=== PATIENT | female | born 1980 | race Caucasian/White ===

== ENCOUNTER 2019-02-07 19:56 | Inpatient (IN) | payer BC ==
[~2019-02-07] VITALS: Ht 154.9 cm; Wt 83.0 kg
[2019-02-07] MEDS ORDERED: ALPR1TAB3 (20:22)
[2019-02-07] MEDS ORDERED: PARO15TA (20:22)
[2019-02-07] MEDS ORDERED: BUPR150T5 (20:22)
[2019-02-07 21:36] LABS: HEMATOCRIT 39.9 % (36.0-47.0); HEMOGLOBIN 13.1 g/dl (12.0-15.5); MEAN CORPUSCULAR HEMOGLOBIN 29.2 pg (27.0-33.0); MEAN CORPUSCULAR HGB CONC 32.8 g/dl (32.0-36.5); MEAN CORPUSCULAR VOLUME 88.9 fl (80.0-96.0); PLATELET COUNT, AUTOMATED 343 10^3/uL (150-450); RED BLOOD COUNT 4.49 10^6/uL (4.00-5.40); WHITE BLOOD COUNT 9.5 10^3/uL (4.0-10.0)
[2019-02-07] MEDS ORDERED: PARO30TA PO (21:57)
[2019-02-07] MEDS ORDERED: ALPR1TAB3 PO (21:57)
[2019-02-07] MEDS ORDERED: BUPR150T5 PO (21:57)
[2019-02-07 22:00] LABS: AMPHETAMINES LEVEL URINE NEGATIVE (NEGATIVE); BARBITURATES URINE NEGATIVE (NEGATIVE); BENZODIAZEPINES URINE POSITIVE (NEGATIVE); CANNABINOIDS URINE NEGATIVE (NEGATIVE); COCAINE METABOLITE URINE NEGATIVE (NEGATIVE); METHADONE URINE NEGATIVE (NEGATIVE); OPIATES URINE NEGATIVE (NEGATIVE); PHENCYCLIDINE URINE NEGATIVE (NEGATIVE)
[2019-02-07 22:07] LABS: ACETAMINOPHEN LEVEL < 2.0 UG/ML (10.0-30.0); ALBUMIN 3.6 GM/DL (3.2-5.2); ALT/SGPT 32 U/L (12-78); BILIRUBIN,DIRECT 0.1 MG/DL (0.0-0.2); BILIRUBIN,TOTAL 0.3 MG/DL (0.2-1.0); BLOOD UREA NITROGEN 8 MG/DL (7-18); CALCIUM LEVEL 8.5 MG/DL (8.5-10.1); CARBON DIOXIDE LEVEL 28 MEQ/L (21-32); CHLORIDE LEVEL 106 MEQ/L (98-107); CREATININE FOR GFR 0.65 MG/DL (0.55-1.30); ETHYL ALCOHOL (ETHANOL) < 0.003 % (0.000-0.010); GLOMERULAR FILTRATION RATE > 60.0 (>58); GLUCOSE, FASTING 83 MG/DL (70-100); POTASSIUM SERUM 4.1 MEQ/L (3.5-5.1); SALICYLATE LEVEL < 1.7 MG/DL (5.0-30.0); SODIUM LEVEL 139 MEQ/L (136-145); TOTAL PROTEIN 6.6 GM/DL (6.4-8.2)
[2019-02-07] MEDS ORDERED: D3 U1000 PO (22:23)
[2019-02-07] MEDS ORDERED: SUMA25TA3 PO (22:23)
[2019-02-07] MEDS ORDERED: B-122000 PO (22:23)
[2019-02-07] MEDS ORDERED: VITACHTA PO (22:23)
[2019-02-07] MEDS ORDERED: RA M10TA PO (22:23)
[2019-02-07] MEDS ORDERED: MAGN400T3 PO (22:23)
[2019-02-07] MEDS ORDERED: CITRTAB13 PO (22:23)
[2019-02-07] MEDS ORDERED: IBUP-1094 PO (22:23)
[2019-02-07] MEDS ORDERED: ACETAMINOPHEN TAB 650MG DOSE (2X325MG) PO PRN (23:15)
[2019-02-07] MEDS ORDERED: MOM 30ML SUSPENSION UDC PO PRN (23:15)
[2019-02-07] MEDS ORDERED: MAALOX 30 ML SUSP *UDC PO PRN (23:15)
[2019-02-08 00:52] VITALS: BP 119/85
[2019-02-08] MEDS: traZODone 50 MG TAB PO PRN ×2 (01:13→20:15)
[2019-02-08 06:37] VITALS: BP 107/54
[2019-02-08] MEDS ORDERED: buPROPion **SR TABLET** (ZYBAN) 150MG PO SCH (09:00)
[2019-02-08] MEDS ORDERED: INFLUENZA QUADRIVALENT PF VACCINE 0.5ML SYRINGE (90686) IM ONE (09:00)
[2019-02-08] MEDS: CYANOCOBALAMIN 500 MCG TAB PO SCH (09:21)
--- NOTE | 2019-02-08 12:13 | MHHPEPDOC ---
General Date Of Admission: Feb 07, 2019 Legal Status: 9.39 Chief Complaint "I'm having thoughts of suicide and thinking of taking an OD". History of Present Illness HISTORY OF THE PRESENT ILLNESS: Patient is a 38 -year-old , female, with no psych history how self-presented to ED endorsing depression and SI w/plan to OD. Pt endorsed depression, low energy, poor appetite, poor sleep, avolition (lays in bed all day), thoughts of guilt ("or everything, even things that aren't my fault") that has been getting worse since her kids returned to school as her oldest daughter is a senior this year and will be going to college next year. Pt had an intake with [facility] 02/05/19 and with have f/u with them on 02/14/19. Her PCP was prescribing her xanax, wellbutrin sr, and paxil for depression. Psychiatric Review of Systems Depression (2 or more weeks): depressed mood, anhedonia, insomnia/hypersomnia (insomnia), feelings of excess/guilt (guilt ("everything, even things that aren't my fault.")), feelings of worthlesness, difficulty concentrating, appetite changes, suicidal thoughts Layne (4 or more days of): denies Psychosis: denies PTSD: denies Anxiety: situational anxiety, stressor related anxiety Anxiety/ 6 months or more of: easily fatigued, difficulty concentrating, sleep disturbance Past Psychiatric History Previous Psychiatric Diagnosis: depression Previous Psychiatric Admissions: denies Suicide Attempts: denies Psychiatric Follow-up: [facility] 02/14/19 Psychiatric medications: wellbutrin sr, xanax qhs, paxil Past Medical History Medical Problems denies Head Injury: No Seizures: No Hospitalizations: No Surgeries: Yes (hernia repair x2, c-cection, hysterectomy, cystectomy, gastric bypass) Family Medical/Psychiatric HX Medical Problems noncontributory Psychiatric Disorders: No Addiction: No Suicide Attemps/Completions: No Addiction History alcohol (2x/wk), other (cannabis occasionally, utox pos benzos (prescribed xanax)) Social History Childhood: . Abuse/Trauma:denies Current Living Situation: lives in [place] with her and 3 daughters Education: . Employment: . Social Support: . Legal: denies Marital: Mental Status Examination General Appearance: well groomed, appears stated age, hospital scubs/clothing, other (facial peircings) Build: overweight Demeanor: average Eye Contact: average Activity: average Behavior: cooperative Speech: clear, spontaneous, reg/rate,rhythm,volume Mood: depressed Mood better today Affect: constricted, appropriate Thought Process: logical/linear, depressed, intact Thought Content (Delusions): none reported, denies SI, HI, AVH Thought Content (Other): none reported, appropriate Thought Content (Aggressive): none reported Perception (Hallucinations): none reported Perception (Other): none reported Cognition (Impairment of): none reported Cognition(Intelligence Est.): average Oriented: Awake, Alert, Oriented times three Insight: fair Judgment: Fair Psychosis: Denies Diagnoses Major depressive d/o recurrent severe w/o psychosis A-FIB/CHADSVASC A-FIB History Current/History of A-Fib/PAF?: No Assessment pt seen and states she feels better today, was just scared on the thoughts of suicide she was having. States on Monday she had a thought of taking all her pills and "top it all off with my xanax" so she could just sleep thru it all. States the thought "hit me again out of no where" and she told her who brought her to her mothers who though it be best she come here. Denies any thoughts of suicide. States she missed home and is just "sad" b/c she misses her daughters. Admits she is close with her daughters and started having "empty nest syndrome" regarding her eldest going to college, daughter wants to go to [place] which isn't that far away. States regarding her daughter growing up "I just wasn't expecting it to happen so soon and wasn't ready for it." States she been on paxil for a long time and doesn't know if it's working anymore, that she ws started on Wellbutrin in July by her PCP when she began to experience some depression. Unsure if wellbutrin is causing her any anxiety but things maybe as she currently dealing with anxious thoughts regarding her daughter going to college. Agreeable to titrating off paxil to prozac for mood/anxiety, weening off wellbutrin sr, and d/c xanax with trazodone for sleep. Risks/benefits discussed. Encouraged to go to groups to learn coping skills. Denies current SI/HI, hallucinations, delusions. Feels safe here. Initial Treatment Plan 1. Patient was admitted on a 9.39 status. 2. Complete history was obtained. 3. With patients permission, family will be contacted and database will be expanded. 4. Patients medication regimen will be reviewed and changed accordingly. 5. Patient will be provided with protected environment. 6. Patient will be treated with individual, group, and milieu therapies. 7. Patient will receive supportive psych-education. 8. Discharge planning will commence immediately. 9. Outpatient follow-up treatment will be strongly recommended. 10. The initial treatment plan will focus initially on: * Depression. * Risk for suicide. 11. paxil decrease to 20mg qhs to ween off and start prozac 10mg daily for mood/anxiety, weening off wellbutrin sr decrease to 150mg daily, and d/c xanax with trazodone prn insomnia ESTIMATED LENGTH OF STAY: 5-7 DAYS. TIME SPENT COUNSELING AND COORDINATING INITIAL CARE: 60 minutes. Vital Signs Vital Signs Date Time Temp Pulse Resp B/P (MAP) Pulse Ox O2 Delivery O2 Flow Rate FiO2 02/08/19 06:37 97.6 66 12 107/54 (71) 02/08/19 00:52 94 Room Air Laboratory Data 24H Labs Laboratory Tests 2 02/07/19 21:16: Nucleated Red Blood Cells % (auto) 0.0, Anion Gap 5L, Glomerular Filtration Rate > 60.0, Calcium Level 8.5, Total Bilirubin 0.3, Direct Bilirubin 0.1, Aspartate Amino Transf (AST/SGOT) 24, Alanine Aminotransferase (ALT/SGPT) 32, Alkaline Phosphatase 58, Total Protein 6.6, Albumin 3.6, Albumin/Globulin Ratio 1.20, Thyroid Stimulating Hormone (TSH) 1.730, Salicylates Level < 1.7L, Urine Opiates Screen NEGATIVE, Urine Methadone Screen NEGATIVE, Acetaminophen Level < 2.0L, Urine Barbiturates Screen NEGATIVE, Urine Phencyclidine Screen NEGATIVE, Urine Amphetamines Screen NEGATIVE, Urine Benzodiazepines Screen POSITIVEH, Urine Cocaine Metabolite Screen NEGATIVE, Urine Cannabinoids Screen NEGATIVE, Ethyl Alcohol Level < 0.003 CBC/BMP Laboratory Tests 02/07/19 21:16 Medications Scheduled Alprazolam (Alprazolam) 1 Mg Tablet, 1 MG PO QHS, (Reported) Bupropion Hcl (Bupropion HCl Sr) 150 Mg Tab.sr.12h, 150 MG PO BID, (Reported) Calcium Citrate/Vitamin D3 (Citracal + D Maximum Caplet) 1 Each Tablet, 1 TAB PO QHS, (Reported) Cholecalciferol (Vitamin D3) (Vitamin D3) 10,000 Unit Capsule, 10,000 UNIT PO QHS, (Reported) Cyanocobalamin (Vitamin B-12) (Vitamin B-12) 2,000 Mcg Tablet, 1,000 MCG PO Q2D, (Reported) EVERY OTHER NIGHT Magnesium Oxide (Magnesium Oxide) 400 Mg Tablet, 400 MG PO QHS, (Reported) Melatonin (Melatonin) 10 Mg Tablet, 10 MG PO QHS, (Reported) Multivitamins (Child Chew Vitamin) 1 Each Tab.chew, 2 TAB PO QHS, (Reported) Paroxetine (Paroxetine HCl) 30 Mg Tablet, 30 MG PO QHS, (Reported) Scheduled PRN Ibuprofen (Ibuprofen) 200 Mg Tablet, 800 MG PO TID PRN for HEADACHE OR PAIN, (Reported) Sumatriptan Succinate (Sumatriptan Succinate) 25 Mg Tablet, Unknown Dose PO BID PRN for MIGRAINE, (Reported) Allergies Coded Allergies: Sulfa (Sulfonamide Antibiotics) (Verified Allergy, Intermediate, HIVES, SOB, 02/07/19) cefuroxime (Verified Allergy, Intermediate, HIVES, 02/07/19) HANG RAMON DO Feb 08, 2019 12:13
[2019-02-08] MEDS ORDERED: FLUoxetine 10 MG CAP PO ONE (12:45)
--- NOTE | 2019-02-08 12:58 | HPEPDOC ---
[facility] Medical History & Physical Date of Admission Feb 08, 2019 Date of Service: Feb 08, 2019 History and Physical CONSULT FOR: Psychiatry medical H&P HISTORY OF PRESENT ILLNESS: This is a 38-year-old female without significant past medical history who presents with suicidal ideation admitted to the inpatient mental [facility] for fear of self-harm. She tells me physically she feels well and has been in the state of usual health. Otherwise patient denies weight loss, hair loss, headache, visual changes, chest pain, shortness of breath, cough, nausea, vomiting, diarrhea, abdominal pain, muscle aches, worsening arthritis PAST MEDICAL HISTORY: 1. Migraine headaches. 2. Anxiety. 3. Depression. HOME MEDICATIONS: Please see below. ALLERGIES: Please see below PAST SURGICAL HISTORY: 1. Cholecystectomy. 2. gastric bypass surgery. 3. Hernia repair 4. 3 5. Back surgery 6. Ankle surgery. SOCIAL HISTORY: Lives with: and 3 daughters, Employment: Not currently employed, Tobacco use: Denies. ETOH: Drinks heavily on weekends 6-7 drinks per night but no daily drinking, Illicit drug use: Denies, CODE STATUS: Full code FAMILY HISTORY:Reviewed and noncontributory REVIEW OF SYSTEMS: 10 systems reviewed and negative other than HPI PHYSICAL EXAMINATION: VITAL SIGNS: Please see below GENERAL: Pleasant morbidly obese female sitting up in bed awake alert oriented speaking in complete sentences no acute distress reading a book HEENT: Moist mucous membranes no elevation in CVP CARDIOVASCULAR: S1 S2 regular no additional heart sounds appreciated. RESPIRATORY: Clear to auscultation bilaterally. ABDOMINAL: Bowel sounds present abdomen soft and nontender, obese EXTREMITIES: No clubbing cyanosis or edema NEUROLOGICAL: Spontaneously moves all 4 extremities cranial 2 through 12 grossly intact no gross focal deficits appreciated PSYCHOLOGICAL: Appropriate somewhat flat LABORATORY DATA: See below. MICROBIOLOGY: Please see below. IMAGING: None ASSESSMENT & PLAN: This is a 38-year-old female with suicidal ideation. PROBLEMS: 1. Depression and anxiety suicidal ideation: We'll defer management to psychiatry. 2. Migraine headaches: We are holding her sumatriptan restart as needed no evidence of any headaches at this time 3. B12 and vitamin D deficiency: Continue his B12 supplementation okay to continue multivitamins 4.Chronic back pain: Continue with ibuprofen DVT PROPHYLAXIS: Ambulating Thank you for this interesting consult, we will continue to follow along with you as needed. Please Vocera secure text or call with any specific questions. Vital Signs Vital Signs Date Time Temp Pulse Resp B/P (MAP) Pulse Ox O2 Delivery O2 Flow Rate FiO2 02/08/19 06:37 97.6 66 12 107/54 (71) 02/08/19 00:52 94 Room Air Laboratory Data Labs 24H Laboratory Tests 2 02/07/19 21:16: Nucleated Red Blood Cells % (auto) 0.0, Anion Gap 5L, Glomerular Filtration Rate > 60.0, Calcium Level 8.5, Total Bilirubin 0.3, Direct Bilirubin 0.1, Aspartate Amino Transf (AST/SGOT) 24, Alanine Aminotransferase (ALT/SGPT) 32, Alkaline Phosphatase 58, Total Protein 6.6, Albumin 3.6, Albumin/Globulin Ratio 1.20, Thyroid Stimulating Hormone (TSH) 1.730, Salicylates Level < 1.7L, Urine Opiates Screen NEGATIVE, Urine Methadone Screen NEGATIVE, Acetaminophen Level < 2.0L, Urine Barbiturates Screen NEGATIVE, Urine Phencyclidine Screen NEGATIVE, Urine Amphetamines Screen NEGATIVE, Urine Benzodiazepines Screen POSITIVEH, Urine Cocaine Metabolite Screen NEGATIVE, Urine Cannabinoids Screen NEGATIVE, Ethyl Alcohol Level < 0.003 CBC/BMP Laboratory Tests 02/07/19 21:16 Home Medications Scheduled Alprazolam (Alprazolam) 1 Mg Tablet, 1 MG PO QHS Bupropion Hcl (Bupropion HCl Sr) 150 Mg Tab.sr.12h, 150 MG PO BID Calcium Citrate/Vitamin D3 (Citracal + D Maximum Caplet) 1 Each Tablet, 1 TAB PO QHS Cholecalciferol (Vitamin D3) (Vitamin D3) 10,000 Unit Capsule, 10,000 UNIT PO QHS Cyanocobalamin (Vitamin B-12) (Vitamin B-12) 2,000 Mcg Tablet, 1,000 MCG PO Q2D EVERY OTHER NIGHT Magnesium Oxide (Magnesium Oxide) 400 Mg Tablet, 400 MG PO QHS Melatonin (Melatonin) 10 Mg Tablet, 10 MG PO QHS Multivitamins (Child Chew Vitamin) 1 Each Tab.chew, 2 TAB PO QHS Paroxetine (Paroxetine HCl) 30 Mg Tablet, 30 MG PO QHS Scheduled PRN Ibuprofen (Ibuprofen) 200 Mg Tablet, 800 MG PO TID PRN for HEADACHE OR PAIN Sumatriptan Succinate (Sumatriptan Succinate) 25 Mg Tablet, Unknown Dose PO BID PRN for MIGRAINE Allergies Coded Allergies: Sulfa (Sulfonamide Antibiotics) (Verified Allergy, Intermediate, HIVES, SOB, 02/07/19) cefuroxime (Verified Allergy, Intermediate, HIVES, 02/07/19) A-FIB/CHADSVASC A-FIB History Current/History of A-Fib/PAF?: No LAMIN HOROWITZ MD Feb 08, 2019 12:58
[2019-02-08 16:42] VITALS: BP 123/59
[2019-02-08] MEDS: IBUPROFEN 800 MG TAB PO PRN (19:06)
[2019-02-08] MEDS: MULTIVITAMINS CHILDREN'S CHEWABLE TABLET PO SCH (20:15)
[2019-02-08] MEDS: PARoxetine 20 MG TAB PO SCH (20:15)
[2019-02-08] MEDS: MAGNESIUM OXIDE 400 MG TAB (MAG-OX) PO SCH (20:15)
[2019-02-08] MEDS ORDERED: ALPRAZolam 0.5 MG TAB PO SCH (21:00)
[2019-02-08] MEDS ORDERED: PARoxetine 10MG TABLET PO SCH (21:00)
[2019-02-09 06:58] VITALS: BP 123/67
[2019-02-09] MEDS: FLUoxetine 10 MG CAP PO SCH (08:18)
[2019-02-09] MEDS: buPROPion (WELLBUTRIN SR) 100 MG SR TAB PO SCH (08:18)
[2019-02-09 16:34] VITALS: BP 115/62
--- NOTE | 2019-02-09 18:15 | MHIPN ---
DATE: 02/09/2019 VITAL SIGNS: Blood pressure 115/62, pulse 77, temperature 98.3. CHIEF COMPLAINT: Says feels better. SUBJECTIVE: Seen for followup. Indicates feels better and that she feels less anxious. Moods are improved. She still has difficulties with sleep. Says has essentially always had difficulties. Had sleep apnea, but after losing weight says that improved considerably. MENTAL STATUS EXAMINATION: Neat, cooperative. No agitation. No psychomotor retardation. She is coherent. Affect reactive, fair range. Denies any thoughts of harming herself or anyone else. Currently no evidence of any psychosis. Cognition grossly intact. Judgment and insight fair, possibly improved. ASSESSMENT: Major depressive disorder, recurrent, severe. PLAN: Continue cross-tapering Prozac and Paxil. I would suggest that the Prozac is increased to 20 mg daily. Paxil is to remain at the current dose and consider a decrease slowly. She is being tapered off the Wellbutrin. Encourage participation in activities in the unit. Further recommendations will be made depending on the clinical picture.
[2019-02-09] MEDS: traZODone 50 MG TAB PO PRN (20:49)
[2019-02-09] MEDS: PARoxetine 20 MG TAB PO SCH (20:49)
[2019-02-09] MEDS: MULTIVITAMINS CHILDREN'S CHEWABLE TABLET PO SCH (20:49)
[2019-02-09] MEDS: MAGNESIUM OXIDE 400 MG TAB (MAG-OX) PO SCH (20:49)
[2019-02-09] MEDS: IBUPROFEN 800 MG TAB PO PRN (20:51)
[2019-02-10 06:40] VITALS: BP 97/52
[2019-02-10] MEDS: buPROPion (WELLBUTRIN SR) 100 MG SR TAB PO SCH (08:07)
[2019-02-10] MEDS: IBUPROFEN 800 MG TAB PO PRN ×2 (08:07→15:16)
[2019-02-10] MEDS: CYANOCOBALAMIN 500 MCG TAB PO SCH (08:08)
[2019-02-10] MEDS: FLUoxetine 10 MG CAP PO SCH (09:33)
[2019-02-10] MEDS: CEPACOL LOZENGE PO PRN (15:15)
--- NOTE | 2019-02-10 15:49 | MHIPN ---
DATE: 02/10/2019 VITAL SIGNS: Blood pressure 97/62, pulse 69, temperature 100. CHIEF COMPLAINT: Says feels okay. SUBJECTIVE: She is seen for followup in the presence of staff. Says she feels okay but has felt hot with a throat that is somewhat sore. Says emotionally has been doing better. MENTAL STATUS EXAMINATION: Neat, cooperative. There is no agitation. No psychomotor retardation. She is coherent. Affect is restricted in range but reactive. At present denies any suicidal thoughts or intents. Denies any suicidal thoughts or intents. No homicidal ideas or intents. No evidence of any psychosis. Cognition is grossly intact. Judgment and insight fair, improved. ASSESSMENT: 1. Major depressive disorder, recurrent, severe. PLAN: Prozac has been increased to 20 mg daily. We will cross taper it with the Paxil. This is as the Wellbutrin is being tapered off. We will monitor her temperature, vital signs, and she will be given some throat lozenges as well. She will see her treatment team and the psychiatrist tomorrow when further recommendations will be made.
[2019-02-10 16:40] VITALS: BP 110/70
[2019-02-10] MEDS: PARoxetine 20 MG TAB PO SCH (21:16)
[2019-02-10] MEDS: traZODone 50 MG TAB PO PRN (21:16)
[2019-02-10] MEDS: MAGNESIUM OXIDE 400 MG TAB (MAG-OX) PO SCH (21:16)
[2019-02-10] MEDS: MULTIVITAMINS CHILDREN'S CHEWABLE TABLET PO SCH (21:17)
[2019-02-11] MEDS: IBUPROFEN 800 MG TAB PO PRN (06:45)
[2019-02-11 06:48] VITALS: BP 94/52
[2019-02-11] MEDS ORDERED: PROZ20CA11 PO (08:59)
[2019-02-11] MEDS ORDERED: TRAZ-252 PO (08:59)
--- NOTE | 2019-02-11 09:01 | MHDSPDOC ---
[facility] Discharge Summary Discharge Summary DATE OF ADMISSION: Feb 07, 2019 at 11:10 pm DATE OF DISCHARGE: Feb 11, 2019 DISCHARGE DIAGNOSES: Major depressive d/o recurrent severe w/o psychosis REASON FOR ADMISSION: Patient is a 38 -year-old , female, with no psych history how self-presented to ED endorsing depression and SI w/plan to OD. Pt endorsed depression, low energy, poor appetite, poor sleep, avolition (lays in bed all day), thoughts of guilt ("or everything, even things that aren't my fault") that has been getting worse since her kids returned to school as her oldest daughter is a senior this year and will be going to college next year. Pt had an intake with [facility] 02/05/19 and with have f/u with them on 02/14/19. Her PCP was prescribing her xanax, wellbutrin sr, and paxil for depression. Pt seen and states she feels better today, was just scared on the thoughts of suicide she was having. States on Monday she had a thought of taking all her pills and "top it all off with my xanax" so she could just sleep thru it all. States the thought "hit me again out of no where" and she told her who brought her to her mothers who though it be best she come here. Denies any thoughts of suicide. States she missed home and is just "sad" b/c she misses her daughters. Admits she is close with her daughters and started having "empty nest syndrome" regarding her eldest going to college, daughter wants to go to [place] which isn't that far away. States regarding her daughter growing up "I just wasn't expecting it to happen so soon and wasn't ready for it." States she been on paxil for a long time and doesn't know if it's working anymore, that she ws started on Wellbutrin in July by her PCP when she began to experience some depression. Unsure if wellbutrin is causing her any anxiety but things maybe as she currently dealing with anxious thoughts regarding her daughter going to college. Agreeable to titrating off paxil to prozac for mood/anxiety, weening off wellbutrin sr, and d/c xanax with trazodone for sleep. Risks/benefits discussed. Encouraged to go to groups to learn coping skills. Denies current SI/HI, hallucinations, delusions. Feels safe here. CONSULTANTS INVOLVED: none TREATMENT AND PROGRESS ON THE UNIT : Pt was admitted to [facility], seen for psychiatric assessment and was started on cross taper from paxil to prozac with eventual d/c paxil and continueation of prozac 20mg daily for mood which she tolerated well. She was weened off wellbutrin sr to eventual d/c which she tolerated well. Her xanax was discontinued due to risk of addiction and she was started on trazodone 50mg qhs prn insomnia. She denies benzodiazepine withdrawal symptoms during her stay and her vitals remained stable. Pt found the change in her medications beneficial and tolerated them well. She attended groups daily during her stay. Her symptoms improved with treatment. On day of discharge she denied depression, anxiety, insomnia, SI/HI, hallucinations, delusions. She was discharged home with follow-up at [facility] 02/14/19.. She felt safe for discharge. DISCHARGE ASSESSMENT: Pt seen and states that her mood is "good and that she's really looking forward to going home today as she missed her and daughters very much. She states her family is very supportive of her. States she's being social on the milieu which is beneficial. States she slept well last night. Feels she is tolerating her medications and they're beneficial. She is attending groups and finding them helpful especially thru learning to use coping skills. She denies depression, anxiety, insomnia, SI/HI, hallucinations, delusions. Pt feels safe to go home to her family today MENTAL STATUS EXAMINATION ON DISCHARGE: General Appearance: well groomed, appears stated age, hospital scrubs/clothing, other (facial piercings) Build: overweight Demeanor: average Eye Contact: average Activity: average Behavior: cooperative Speech: clear, spontaneous, reg/rate,rhythm,volume Mood: euthymic, full range Mood "good" Affect: euthymic, appropriate, full range, congruent Thought Process: logical/linear, intact Thought Content (Delusions): none reported, denies SI, HI, AVH Thought Content (Other): none reported, appropriate Thought Content (Aggressive): none reported Perception (Hallucinations): none reported Perception (Other): none reported Cognition (Impairment of): none reported Cognition(Intelligence Est.): average Oriented: Awake, Alert, Oriented times three Insight: fair Judgment: Fair Psychosis: Denies MEDICATIONS ON DISCHARGE: prozac 20mg daily trazodone 50mg qhs prn insomnia PLAN/FOLLOWUP ARRANGEMENTS: D/c home with follow-up at [facility] 02/14/19. The amount of time spent in the coordination of care for this patient was approximately 30 minutes. Vital Signs/I&Os Vital Signs Date Time Temp Pulse Resp B/P (MAP) Pulse Ox O2 Delivery O2 Flow Rate FiO2 02/11/19 06:48 99.3 67 14 94/52 (66) 02/10/19 06:40 Room Air 02/08/19 00:52 94 Medications Scheduled Alprazolam (Alprazolam) 1 Mg Tablet, 1 MG PO QHS, (Reported) Bupropion Hcl (Bupropion HCl Sr) 150 Mg Tab.sr.12h, 150 MG PO BID, (Reported) Calcium Citrate/Vitamin D3 (Citracal + D Maximum Caplet) 1 Each Tablet, 1 TAB PO QHS, (Reported) Cholecalciferol (Vitamin D3) (Vitamin D3) 10,000 Unit Capsule, 10,000 UNIT PO Q HS, (Reported) Cyanocobalamin (Vitamin B-12) (Vitamin B-12) 2,000 Mcg Tablet, 1,000 MCG PO Q2D, (Reported) EVERY OTHER NIGHT Magnesium Oxide (Magnesium Oxide) 400 Mg Tablet, 400 MG PO QHS, (Reported) Melatonin (Melatonin) 10 Mg Tablet, 10 MG PO QHS, (Reported) Multivitamins (Child Chew Vitamin) 1 Each Tab.chew, 2 TAB PO QHS, (Reported) Paroxetine (Paroxetine HCl) 30 Mg Tablet, 30 MG PO QHS, (Reported) Scheduled PRN Ibuprofen (Ibuprofen) 200 Mg Tablet, 800 MG PO TID PRN for HEADACHE OR PAIN, (Reported) Sumatriptan Succinate (Sumatriptan Succinate) 25 Mg Tablet, Unknown Dose PO BID PRN for MIGRAINE, (Reported) Allergies Coded Allergies: Sulfa (Sulfonamide Antibiotics) (Verified Allergy, Intermediate, HIVES, SOB, 02/07/19) cefuroxime (Verified Allergy, Intermediate, HIVES, 02/07/19) HANG RAMON DO Feb 11, 2019 9:01 am
[2019-02-11] MEDS: buPROPion (WELLBUTRIN SR) 100 MG SR TAB PO SCH (09:22)
[2019-02-11] MEDS: FLUoxetine 10 MG CAP PO SCH (09:22)
[2019-02-11] MEDS: CEPACOL LOZENGE PO PRN (09:23)
== END 2019-02-11 12:50 | disposition home or self-care (01) | DRG 751 ==
LOC: M ED 19:56 → M ED INP 23:10 → M PSY 02-08 00:10
PROVIDERS: ADMIT Psychiatry & Neurology Psychiatry; ATTEND Psychiatry & Neurology Psychiatry
DX: F33.2 Major depressive disorder, recurrent severe without psychotic features (principal); E53.8 Deficiency of other specified B group vitamins; G43.909 Migraine, unspecified, not intractable, without status migrainosus; G47.00 Insomnia, unspecified; M54.9 Dorsalgia, unspecified; E55.9 Vitamin D deficiency, unspecified; Z88.2 Allergy status to sulfonamides; Z88.8 Allergy status to other drugs, medicaments and biological substances; Z79.899 Other long term (current) drug therapy; Z98.84 Bariatric surgery status; Z90.49 Acquired absence of other specified parts of digestive tract

== ENCOUNTER → 2021-07-07 | Outpatient (CLI) | payer BC ==
[~2021-07-07] MED LIST: ALPR1TAB3; ALPR1TAB3 PO; B-122000 PO; BUPR150T5; BUPR150T5 PO; CITRTAB16 PO; D3 U1000 PO; MAGN400T33 PO; PARO30TA4; PARO30TA65 PO; PROZ20CA11 PO; RA M10TA PO; SFHIBU200 PO; SUMA25TA3 PO; TRAZ-252 PO; VITACHTA PO
== END ==
LOC: M RAD 15:47
PROVIDERS: ATTEND Physician Assistant
DX: N20.0 Calculus of kidney (principal); N23 Unspecified renal colic

== ENCOUNTER 2021-07-16 11:10 | Emergency (ER) | payer BC ==
[~2021-07-16] VITALS: Ht 154.9 cm; Wt 79.7 kg
[2021-07-16 11:12] VITALS: BP 111/73
[2021-07-16] MEDS ORDERED: NABU-71 PO (11:21)
[2021-07-16] MEDS ORDERED: AMOX875T2 PO (11:21)
[2021-07-16] MEDS ORDERED: HYDR-643 PO (11:21)
[2021-07-16] MEDS ORDERED: KETOROLAC 30 MG/ML 1ML VIAL IV ONE (11:40)
[2021-07-16] MEDS ORDERED: NS 1,000 ML IV ONE (11:40)
[2021-07-16] MEDS ORDERED: methylPREDNISolone 125MG 2ML VIAL IV ONE (11:45)
[2021-07-16 12:23] LABS: BASO % 0.5 % (0.0-1.0); EOS # 0.2 10^3/uL (0.0-0.5); EOS % 2.8 % (0.0-3.0); HEMATOCRIT 36.7 % (36.0-47.0); HEMOGLOBIN 11.9 g/dl (12.0-15.5); LYMPH # 1.8 10^3/uL (1.5-5.0); LYMPH % 21.2 % (24.0-44.0); MEAN CORPUSCULAR HEMOGLOBIN 26.6 pg (27.0-33.0); MEAN CORPUSCULAR HGB CONC 32.4 g/dl (32.0-36.5); MEAN CORPUSCULAR VOLUME 81.9 fl (80.0-96.0); MONO # 0.8 10^3/uL (0.0-0.8); MONO % 8.7 % (2.0-8.0); NEUTROPHILS # 5.8 10^3/uL (1.5-8.5); NEUTROPHILS % 66.3 % (36.0-66.0); PLATELET COUNT, AUTOMATED 278 10^3/uL (150-450); RED BLOOD COUNT 4.48 10^6/uL (4.00-5.40); WHITE BLOOD COUNT 8.7 10^3/uL (4.0-10.0)
[2021-07-16 12:39] LABS: BLOOD UREA NITROGEN 15 MG/DL (7-18); C REACTIVE PROTEIN QUANTITATIV 0.85 MG/DL (0.00-0.30); CALCIUM LEVEL 8.7 MG/DL (8.5-10.1); CARBON DIOXIDE LEVEL 24 MEQ/L (21-32); CHLORIDE LEVEL 111 MEQ/L (98-107); CREATININE FOR GFR 0.58 MG/DL (0.55-1.30); GLOMERULAR FILTRATION RATE > 60.0 (>58); GLUCOSE, FASTING 76 MG/DL (70-100); POTASSIUM SERUM 4.1 MEQ/L (3.5-5.1); SODIUM LEVEL 140 MEQ/L (136-145)
[2021-07-16 12:52] LABS: ERYTHROCYTE SEDIMENTATION RATE 21 mm/hr (0-20)
[2021-07-16] MEDS ORDERED: ISOVUE-370 76% 100ML VIAL As Ordered ONE (13:06)
[2021-07-16] MEDS ORDERED: KETO10TAB PO (15:38)
== END 2021-07-16 15:54 | disposition home or self-care (01) ==
LOC: M ED 11:10
DX: K11.20 Sialoadenitis, unspecified (principal); Z98.84 Bariatric surgery status; E07.9 Disorder of thyroid, unspecified; Z79.899 Other long term (current) drug therapy; Z88.2 Allergy status to sulfonamides; Z88.8 Allergy status to other drugs, medicaments and biological substances
CPT/HCPCS: 36415; 70491; 80048; 85025; 85652; 86140; 87880; 96361; 96374; 96375; 99284; J1885; J2930; Q9967

== ENCOUNTER → 2021-07-28 | Outpatient (REF) | payer BC ==
[~2021-07-28] MED LIST changes: +AMOX875T2 PO; +BUPR-71; +BUPR-71 PO; -BUPR150T5; -BUPR150T5 PO; +HYDR-643 PO; +KETO10TAB PO; +NABU-71 PO
== END ==
LOC: M SMT 17:20
PROVIDERS: ATTEND Physician Assistant
DX: N20.0 Calculus of kidney (principal)

== ENCOUNTER 2022-02-25 17:12 | Emergency (ER) | payer SELFPAY ==
[~2022-02-25] VITALS: Ht 154.9 cm; Wt 77.0 kg
[2022-02-25 17:12] VITALS: BP 125/68
[~2022-02-25 17:12] MED LIST changes: +CITRACAL MAXIMU1 TAB PO; -CITRTAB16 PO
[2022-02-25] MEDS ORDERED: PRED20TA (17:52)
[2022-02-25] MEDS ORDERED: GABA600T4 (17:52)
[2022-02-25] MEDS ORDERED: CYCL10TA20 (17:52)
== END 2022-02-26 00:34 | disposition left against medical advice (07) ==
LOC: M ED 17:12
DX: Z53.21 Procedure and treatment not carried out due to patient leaving prior to being seen by health care provider (principal)

== ENCOUNTER 2022-07-22 10:26 | Inpatient (IN) | payer BC, SELFPAY ==
[~2022-07-22] VITALS: Ht 154.9 cm; Wt 77.3 kg
[~2022-07-22 10:26] MED LIST changes: +CYCL10TA20; +GABA600T4; +PRED20TA
[2022-07-22 12:10] LABS: HEMOGLOBIN 12.5 g/dl (12.0-15.5); MEAN CORPUSCULAR HEMOGLOBIN 25.7 pg (27.0-33.0); MEAN CORPUSCULAR HGB CONC 30.5 g/dl (32.0-36.5); MEAN CORPUSCULAR VOLUME 84.2 fl (80.0-96.0); PLATELET COUNT, AUTOMATED 358 10^3/uL (150-450); RED BLOOD COUNT 4.87 10^6/uL (4.00-5.40); WHITE BLOOD COUNT 7.1 10^3/uL (4.0-10.0)
[2022-07-22 12:41] LABS: AMPHETAMINES LEVEL URINE NEGATIVE (NEGATIVE); BARBITURATES URINE NEGATIVE (NEGATIVE); BENZODIAZEPINES URINE NEGATIVE (NEGATIVE); COCAINE METABOLITE URINE NEGATIVE (NEGATIVE); METHADONE URINE NEGATIVE (NEGATIVE); OPIATES URINE NEGATIVE (NEGATIVE); PHENCYCLIDINE URINE NEGATIVE (NEGATIVE)
[2022-07-22 12:44] LABS: CANNABINOIDS URINE POSITIVE (NEGATIVE)
[2022-07-22 14:03] LABS: ETHYL ALCOHOL (ETHANOL) 0.004 % (0.000-0.010)
[2022-07-22 14:04] LABS: SALICYLATE LEVEL < 3.0 MG/DL (<30)
[2022-07-22 14:05] LABS: ACETAMINOPHEN LEVEL < 2.0 UG/ML (10.0-20.0); ALBUMIN 3.7 G/DL (3.2-5.2); ALKALINE PHOSPHATASE 72 U/L (46-116); ALT/SGPT 15 U/L (7.0-40); AST/SGOT 20 U/L (<34); BILIRUBIN,DIRECT < 0.1 MG/DL (<0.4); BILIRUBIN,TOTAL 0.3 MG/DL (0.3-1.2); BLOOD UREA NITROGEN 8 MG/DL (9-23); CALCIUM LEVEL 9.2 MG/DL (8.5-10.1); CARBON DIOXIDE LEVEL 25 MMOL/L (20-31); CHLORIDE LEVEL 106 MMOL/L (98-107); CREATININE FOR GFR 0.52 MG/DL (0.55-1.30); GLOMERULAR FILTRATION RATE > 60.0 (>58); GLUCOSE, FASTING 83 MG/DL (60-100); HCG, SERUM QUALITATIVE NEGATIVE (NEGATIVE); POTASSIUM SERUM 4.3 MMOL/L (3.5-5.1); SODIUM LEVEL 139 MMOL/L (136-145); TOTAL PROTEIN 6.7 G/DL (5.7-8.2)
[2022-07-22 14:07] LABS: THYROID STIMULATING HORMONE 1.034 uIU/ML (0.55-4.78)
[2022-07-22] MEDS ORDERED: ACETAMINOPHEN TAB 650MG DOSE (2X325MG) PO PRN (18:20)
[2022-07-22] MEDS ORDERED: IBUPROFEN 400MG TAB PO PRN (18:20)
[2022-07-22] MEDS ORDERED: MAALOX 30 ML SUSP *UDC PO PRN (18:20)
[2022-07-22] MEDS ORDERED: FLUO20CA22 PO (18:31)
[2022-07-22] MEDS ORDERED: CYCL-707 PO (18:31)
[2022-07-22] MEDS ORDERED: HOME MED LIST COMPLETE! XX SCH (18:35)
[2022-07-22] MEDS: diphenhydrAMINE 25MG CAP PO PRN (23:13)
[2022-07-22 23:18] VITALS: BP 124/79
[2022-07-23 06:30] VITALS: BP 104/58
[2022-07-23] MEDS: DULoxetine 30MG CAPSULE (CYMBALTA) PO SCH (15:39)
[2022-07-23 16:21] VITALS: BP 122/77
[2022-07-23] MEDS: diphenhydrAMINE 25MG CAP PO PRN (20:47)
[2022-07-24 06:57] VITALS: BP 110/52
[2022-07-24] MEDS: DULoxetine 30MG CAPSULE (CYMBALTA) PO SCH (08:18)
[2022-07-24] MEDS: MOM 30ML SUSPENSION UDC PO PRN (09:25)
[2022-07-24] MEDS: busPIRone 5 MG TAB PO SCH ×2 (11:17→20:20)
[2022-07-24 16:41] VITALS: BP 120/76
[2022-07-24] MEDS: traZODone 50 MG TAB PO PRN (20:20)
[2022-07-25 06:31] VITALS: BP 137/63
[2022-07-25] MEDS: busPIRone 5 MG TAB PO SCH ×2 (07:54→21:35)
[2022-07-25] MEDS: DULoxetine 30MG CAPSULE (CYMBALTA) PO SCH (07:54)
[2022-07-25] MEDS: MOM 30ML SUSPENSION UDC PO PRN (07:54)
[2022-07-25 17:58] VITALS: BP 143/88
[2022-07-25] MEDS: traZODone 50 MG TAB PO PRN (21:35)
[2022-07-26 06:00] VITALS: BP 101/57
[2022-07-26] MEDS ORDERED: TRAZ-252 PO (08:10)
[2022-07-26] MEDS ORDERED: BUSP5TA PO (08:10)
[2022-07-26] MEDS ORDERED: CYMB1CAP5 PO (08:10)
[2022-07-26] MEDS: DULoxetine 30MG CAPSULE (CYMBALTA) PO SCH (09:40)
[2022-07-26] MEDS: busPIRone 5 MG TAB PO SCH (09:40)
== END 2022-07-26 15:59 | disposition home or self-care (01) | DRG 751 ==
LOC: M ED 10:26 → M ED INP 18:16 → M PSY 22:40
PROVIDERS: ADMIT Student in an Organized Health Care Education/Training Program; ATTEND Student in an Organized Health Care Education/Training Program
DX: F33.2 Major depressive disorder, recurrent severe without psychotic features (principal); F41.1 Generalized anxiety disorder; M54.9 Dorsalgia, unspecified; Z79.899 Other long term (current) drug therapy; Z88.2 Allergy status to sulfonamides; Z88.8 Allergy status to other drugs, medicaments and biological substances; Z20.822 Contact with and (suspected) exposure to COVID-19